=== PATIENT | male | born 1940 | race Caucasian/White ===

== ENCOUNTER 2022-04-02 11:18 | Emergency (ER) | payer MEDICARE, SELFPAY ==
[2022-04-02 11:28] VITALS: BP 163/62; BP 177/68; PULSE 56; PULSE 62; RESP 16; TEMP 36.6; O2SAT 99; BMI 25.0
--- NOTE | 2022-04-02 11:56 | ED_ITS ---
HPI - General Adult General Chief complaint: General Medical Stated complaint: Constipation/low back pain per EMS Time Seen by Provider: 04/02/22 11:26 Source: patient, EMS and pediatric sports medicine specialist Mode of arrival: EMS Limitations: language barrier History of Present Illness HPI narrative: 81-year-old male who comes from home with complaints of rectal pain and pressure. Patient reports he is unable to move his bowels today and feels like there is something stuck. Patient also reports some lower back discomfort today. Patient denies any history of constipation. Does not currently take any medications for constipation Related Data Previous Rx's Medication Instructions Recorded docusate sodium 100 mg capsule 100 mg PO BID #60 caps 04/02/22 (Colace) lactulose 10 gram/15 mL oral 15 ml PO DAILY PRN constipation 04/02/22 solution #237 mL polyethylene glycol 3350 17 gram 17 g PO BID #100 ea 04/02/22 oral powder packet (Miralax) Allergies Allergy/AdvReac Type Severity Reaction Status Date / Time Penicillins [PENICILLINS] Allergy Unknown UNKNOWN Verified 04/02/22 14:56 Review of Systems Review of Systems: Yes all other systems are reviewed and are negative Constitutional: Constitutional: Reports no additional constitutional complaints, Denies body ache(s), Denies chills, Denies fever(s), Denies headache(s) and Denies weakness Eyes: Eyes: Reports no additional eye complaints and Denies change in vision ENT: Reports system reviewed and no additional complaints, except as documented, Denies dizziness, Denies headache(s), Denies nasal congestion, Denies nasal discharge and Denies neck pain Cardiovascular: Cardiovascular: Reports no additional cardiovascular complaints, Denies chest pain, Denies leg edema and Denies dyspnea Respiratory: Respiratory: Reports no additional respiratory complaints, Denies cough and Denies dyspnea Gastrointestinal: Gastrointestinal: Reports no additional gastrointestinal complaints, Denies abdominal pain, Reports constipation, Denies diarrhea, Denies nausea and Denies vomiting Comments: +rectal pain/pressure Genitourinary: Genitourinary: Denies urinary incontinence Musculoskeletal: Musculoskeletal: Reports no additional musculoskeletal complaints, Denies back pain, Denies arthralgias, Denies joint swelling, Denies neck pain, Denies numbness and Denies tingling Integumentary/Breasts: Skin/Breast: Reports system reviewed and no additional complaints, except as docu and Denies rash Neurologic: Reports system reviewed and no additional complaints, except as documented, Denies dizziness, Denies headache(s), Denies numbness, Denies tingling and Denies weakness PMFSH Past Medical History Attestation statement: The following information was validated with the patient. Source: old records reviewed and nursing notes reviewed Social History Social History Advance Directives: No Advance Directives Information Provided: No Physical Exam ED Vital Signs: Vital Signs - 24 hr 04/02/22 11:28 Temperature 97.9 F Pulse Rate 56 Respiratory Rate 16 Blood Pressure 163/62 H Pulse Oximetry 99 Oxygen Delivery Method Room Air BMI result Body Mass Index 25.0 Const General: alert Orientation/consciousness: patient oriented x3 Limitations: no limitations HENMT Head: Yes normal to inspection Ears: hearing grossly normal bilaterally Eyes General: appearance normal, both eyes and all related structures Pupils: Equal, round and reactive pupils present Neck Neck: Yes normal visual inspection Chest Chest palpation & inspection: normal inspection of the chest Resp Effort & Inspection: normal respiratory effort Auscultation: clear to auscultation bilaterally Cardio Rate: regular rate Rhythm: regular rhythm Peripheral pulses: Peripheral pulses 2+ throughout GI Inspection: Yes normal to inspection Palpation (GI): Soft to palpation and nontender Rectal Exam - Male: Yes fecal impaction General: Yes no CVA tenderness Back/Spine/Pelvis Back: no CVA tenderness Thoracic/Lumbar Spine: thoracic and lumbar spine normal to inspection Skin General skin exam: no rashes or lesions noted Neuro General: patient oriented x3 and moves all extremities Cranial nerves: Yes Equal, round and reactive pupils present Cognition (Neuro): normal cognition Gait exam (Neuro): Normal gait present Extrem General: Yes normal to inspection, Yes no pedal edema and Yes no calf tenderness Course Course Course Narrative: After initial disimpaction and Fleet enema patient had a small bowel movement. I did a repeat disimpaction and got additional stool. Patient will have repeat Fleet enema. Reevaluation(s) Reevaluation #1: 1630-Patient able to move his bowels. Will start on bowel regimen with lactulose prn. Reviewed this with the janitorial maintenance worker. Reviewed worrisome signs and symptoms when to return to the emergency room. Comfortable plan for discharge home. Medications Administered Discontinued Medications Generic Name Dose Route Start Last Admin Trade Name Freq PRN Reason Stop Dose Admin Lorazepam 1 mg 04/02/22 11:44 04/02/22 12:00 Lorazepam 2 Mg/Ml Vial IVPUSH 04/02/22 11:45 1 mg STAT STA Administration Morphine Sulfate 4 mg 04/02/22 11:44 04/02/22 12:00 Morphine Sulfate 4 Mg/Ml Cartridge IVPUSH 04/02/22 11:45 4 mg ONCE ONE Administration Protocol Sodium Biphosphate/Sodium Phosphate 133 ml 04/02/22 11:45 04/02/22 12:03 Sodium Phosphate,[place]-Dibasic 133 Ml Enema [place] 04/02/22 11:46 133 ml ONCE ONE Administration Sodium Biphosphate/Sodium Phosphate 133 ml 04/02/22 14:51 04/02/22 14:57 Sodium Phosphate,[place]-Dibasic 133 Ml Enema [place] 04/02/22 14:52 133 ml ONCE ONE Administration Procedures Rectal Disimpaction Time out performed rectal disimpaction: Yes Indication: fecal impaction Sedation/Analgesia: opioids Technique: manual disimpaction with gloved finger Result: significant stool output Patient Tolerated Procedure: well Complications: none Medical Decision Making Medical Decision Making MDM Narrative: 81-year-old male here with rectal pain and pressure in feeling like he can not pass the stools. On exam patient with fecal impaction. Abdomen soft nontender. Low concern for obstruction. Patient will need manual disimpaction. Patient unable to tolerate procedure. Will need to be medicated with morphine/a tivan prior to procedure. Differential Diagnosis Differential Diagnoses: The differential diagnosis associated with the presentation includes fecal impaction, constipation, doubt SBO Discharge Plan Discharge Clinical Impression: Fecal impaction Patient Disposition: Home, Self-Care Instructions: Fecal Impaction (ED) Additional Instructions: [place] el colace y miralax dos veces al d?a. [place] la lactulosa darrick vez al d?a hasta que est? defecando para que pueda suspender el medicamento. [place] los l?quidos y la fibra en casa. Seguimiento con el m?dico de atenci?n primaria Prescriptions: New polyethylene glycol 3350 [Miralax] 17 gram powder in packet 17 g PO BID Qty: 100 0RF docusate sodium [Colace] 100 mg capsule 100 mg PO BID Qty: 60 0RF lactulose 10 gram/15 mL solution 15 ml PO DAILY PRN (Reason: constipation) Qty: 237 0RF Interventions: ED Discharge Assessment Last Done: 04/02/22 15:37 Discharge Date/Time: 04/02/22 15:53 Print Language: Romanian
[2022-04-02] MEDS: LORazepam 2 MG/ML VIAL 1 MG IVPUSH (12:00)
[2022-04-02] MEDS: Morphine Sulfate 4 MG/ML CARTRIDGE IVPUSH (12:00)
[2022-04-02] MEDS: Sodium Phosphate,Mono-Dibasic 133 ML ENEMA PR ×2 (12:03→14:57)
== END 2022-04-02 15:53 | disposition home or self-care (01) ==
PROVIDERS: Emergency Provider Emergency Medicine
DX: K56.41 Fecal impaction (principal); M54.50 Low back pain, unspecified
CPT/HCPCS: 96374; 96375; 99284; J2060; J2270

== ENCOUNTER 2024-01-27 12:05 | Outpatient (REF) | payer MEDICARE, SELFPAY ==
[2024-01-27 13:34] LABS: Hematocrit 32.1 % (42.0-52.0); Hemoglobin 11.1 g/dl (14.0-18.0); Mean Corpuscular HGB Conc 34.6 g/dl (31.0-36.0); Mean Corpuscular Hemoglobin 31.4 pg (27.0-33.0); Mean Corpuscular Volume 90.9 fL (80.0-98.0); Mean Platelet Volume 10.5 fL (9.4-12.4); Platelet Count 256 X10*3/uL (160-400); Red Blood Count 3.53 X10*6/uL (4.60-5.80); White Blood Count 8.9 X10*3/uL (4.8-10.8)
[2024-01-27 13:43] LABS: Creatinine Urine 298.58 mg/dL; Microalbum/Creatinine Ratio Ur 95.1 ug/mg cr (<30)
[2024-01-27 14:06] LABS: Estimated Average Glucose 174 mg/dL; Hemoglobin A1C 347.9131 umol/L; Hemoglobin A1c % 7.7 % (<6.0); Total Hemoglobin (HGBA1C) 5688.5309 umol/L
[2024-01-27 14:16] LABS: Alanine Aminotransferase 27 U/L (0-40); Albumin Level 3.9 g/dL (3.5-5.0); Alkaline Phosphatase 98 U/L (39-117); Anion Gap 12 (12-20); Aspartate Amino Transferase 22 U/L (5-37); Bilirubin Direct 0.1 mg/dL (0.0-0.5); Bilirubin Total 0.4 mg/dL (0.0-1.0); Blood Urea Nitrogen 31 mg/dL (9-16); Calcium 9.5 mg/dL (8.4-10.2); Carbon Dioxide 26 mmol/L (22-29); Chloride 104 mmol/L (96-108); Cholesterol 159 mg/dL (<200); Estimated Glomerular Filt Rate 35; Ferritin 136 ng/mL (20-250); Free T4 (Free Thyroxine) 1.05 ng/dL (0.71-1.85); Glucose Random 171 mg/dL (60-115); HDL Cholesterol 27 mg/dL (>40); Iron 70 mcg/dL (45-160); LDL Cholesterol Calculated 56 mg/dL (<100); Percent Iron Saturation 32 % (15-50); Potassium 3.7 mmol/L (3.3-5.1); Sodium 138 mmol/L (135-145); Thyroid Stimulating Hormone 1.97 uIU/mL (0.32-4.0); Total Iron Binding Capacity 222 mcg/dL (228-428); Total Protein 7.9 g/dL (6.5-8.0); Triglycerides 381 mg/dL (<150); Unsaturated Iron Binding 152 ug/dL; Vitamin D 25-OH Total 58.2 ng/mL (>30)
[2024-01-27 14:29] LABS: Folate 3.8 ng/mL (> or = 4.0); Vitamin B12 335 pg/mL (200-900)
== END 2024-01-27 12:06 | disposition home or self-care (01) ==
LOC: HO.HHCL 12:05
PROVIDERS: Visit Provider Family Medicine
DX: E11.22 Type 2 diabetes mellitus with diabetic chronic kidney disease (principal); D63.1 Anemia in chronic kidney disease; N18.4 Chronic kidney disease, stage 4 (severe)
CPT/HCPCS: 36415; 80048; 80061; 80076; 82043; 82306; 82570; 82607; 82728; 82746; 83036; 83540; 84439; 84443; 85027

== ENCOUNTER 2024-01-27 12:40 | Outpatient (REF) | payer MEDICARE, SELFPAY ==
--- NOTE | ~2024-01-27 | XR_ITS ---
EXAMINATION: XR CHEST CLINICAL INFORMATION: noctural cough COMPARISON: Chest radiograph 12/09/2018 TECHNIQUE: 2 views of the chest were obtained. FINDINGS: The lungs are hypoexpanded. Mild asymmetric elevation of the right hemidiaphragm. Stable appearance of right costophrenic angle blunting over multiple prior studies dating back to 2019. No dense focal consolidation, significant pleural effusion, pulmonary edema or pneumothorax. The cardiomediastinal silhouette is within normal limits for technique and unchanged. Aortic arch calcifications again seen. No acute osseous abnormality. XR/XR chest 2V IMPRESSION: No acute pulmonary disease. Electronically signed by: Sanjana Vera DO 01/27/2024 04:42 PM EST
== END 2024-01-27 12:41 | disposition home or self-care (01) ==
LOC: HO.HHCX 12:40
PROVIDERS: PCP Family Medicine; Visit Provider Family Medicine
DX: J45.30 Mild persistent asthma, uncomplicated (principal)
CPT/HCPCS: 71046